=== PATIENT | female | born 1995 | race Caucasian/White ===

== ENCOUNTER 2017-03-27 10:59 | Emergency (ER) | payer OTHER ==
[2017-03-27 11:12] VITALS: TEMP 97.9; O2SAT 97
[2017-03-27] MEDS ORDERED: NS 1,000 ML IV ONE (11:21)
[2017-03-27] MEDS ORDERED: LOPERAMIDE HCL 2 MG CAP PO ONE (11:22)
--- NOTE | 2017-03-27 11:25 | EDPHY ---
H & P Time Seen by Provider: 03/27/17 11:11 HPI/ROS: CHIEF COMPLAINT: Diarrhea, nausea, vomiting HISTORY OF PRESENT ILLNESS: Patient is a 21-year-old female who presents emergency department with ongoing abdominal issues. Patient states she has a history of IBS. In December of 2016 she switched to a gluten free non sophia diet. She has been slowly introducing very back into her diet. Since Sunday she developed diarrhea. This was nonbloody. She has no significant abdominal cramping. Today she had nausea and vomited x2. This was nonbloody. She denies fevers or chills. No dysuria or frequency. No recent travel. No antibiotic use. Last menstrual period was last month. She is on control. REVIEW OF SYSTEMS: My complete review of systems is negative except as mentioned in the HPI. Past Medical/Surgical History: Includes IBS, asthma, depression Social history: She does not smoke Smoking Status: Never smoked Physical Exam: Vitals noted. Afebrile GENERAL: Well-appearing, in no acute distress, alert. HEENT: Eyes normal to inspection, normal pharynx, no signs of dehydration. NECK: No thyromegaly, no lymphadenopathy, supple. RESPIRATORY: Clear to auscultation bilaterally, no rales, rhonchi or wheezing. CVS: Regular rate and rhythm, no rubs, murmurs, or gallops. ABDOMEN: Soft, nontender, nondistended, no organomegaly. Benign. Normal bowel sounds. BACK: Normal to inspection, no CVA tenderness. SKIN: Normal color, no rash, warm, dry. No pallor. EXTREMITIES: No pedal edema, no calf tenderness, no Homans sign or cords, no joint swelling. NEURO/PSYCH: Alert and oriented x3, normal mood and affect, normal motor sensory exam. Constitutional: Initial Vital Signs Temperature (C) 36.6 C 03/27/17 11:10 Heart Rate 90 03/27/17 11:10 Respiratory Rate 18 03/27/17 11:10 Blood Pressure 136/76 H 03/27/17 11:10 O2 Sat (%) 97 03/27/17 11:10 O2 Delivery Mode Room Air Allergies/Adverse Reactions: cefaclor [From [facility]] Allergy (Verified 03/27/17 11:09) Sulfa (Sulfonamide Antibiotics) Allergy (Verified 03/27/17 11:09) Home Medications: Medication Instructions Recorded Levonorgestrel-Eth Estradiol 12/16/12 [Seasonale] Albuterol 5 mg/ml INH [Proventil] 100 mg IH 05/03/13 Advair 100/50 (RX) 03/18/14 Citalopram 03/27/17 Ondansetron Odt [Zofran Odt 4 mg 4 mg PO Q4PRN PRN #7 tab 03/27/17 (*)] Wellbutrin 100mg (*) 03/27/17 traZODone 03/27/17 Medical Decision Making ED Course/Re-evaluation: In the emergency department I discussed possible etiologies with the patient and her mother. I answered all her questions. IV was placed. Laboratory studies were ordered. Patient was given Zofran 4 mg IV for nausea. She is given normal saline 1 L IV for hydration. She was given Imodium 2 tablets orally for diarrhea. I reviewed the patient's laboratory studies. Her chemistry and LFTs were normal. Patient has a mildly low hematocrit at 36. I discussed all results with the patient. I answered all her questions. On recheck the patient was doing well. She was sitting comfortably in the bed. Her abdomen was soft, nontender nondistended. She was given warnings prior to leaving. She will return with worsening symptoms. Differential Diagnosis: My differential includes but is not limited to IBS, infectious diarrhea, dehydration, electrolyte abnormality, sugar abnormality, small-bowel obstruction , perforation, mass, malignancy - Data Points Laboratory Results: Laboratory Results 03/27/17 11:15 03/27/17 11:15 03/27/17 03/27/17 03/27/17 11:15 11:15 11:15 WBC 8.90 10^3/uL 10^3/uL (3.80-9.50) RBC 4.41 10^6/uL 10^6/uL (4.18-5.33) Hgb 12.0 g/dL L g/dL (12.6-16.3) Hct 36.0 % L % (38.0-47.0) MCV 81.6 fL fL (81.5-99.8) MCH 27.2 pg L pg (27.9-34.1) MCHC 33.3 g/dL g/dL (32.4-36.7) RDW 12.5 % % (11.5-15.2) Plt Count 458 10^3/uL H 10^3/uL (150-400) MPV 9.1 fL fL (8.7-11.7) Neut % (Auto) 67.4 % % (39.3-74.2) Lymph % (Auto) 25.1 % % (15.0-45.0) [place]dwell % (Auto) 6.1 % % (4.5-13.0) Eos % (Auto) 0.7 % % (0.6-7.6) Baso % (Auto) 0.4 % % (0.3-1.7) Nucleat RBC Rel Count 0.0 % % (0.0-0.2) Absolute Neuts (auto) 6.00 10^3/uL 10^3/uL (1.70-6.50) Absolute Lymphs (auto) 2.23 10^3/uL 10^3/uL (1.00-3.00) Absolute Monos (auto) 0.54 10^3/uL 10^3/uL (0.30-0.80) Absolute Eos (auto) 0.06 10^3/uL 10^3/uL (0.03-0.40) Absolute Basos (auto) 0.04 10^3/uL 10^3/uL (0.02-0.10) Absolute Nucleated RBC 0.00 10^3/uL 10^3/uL (0-0.01) Immature Gran % 0.3 % % (0.0-1.1) Immature Gran # 0.03 10^3/uL 10^3/uL (0.00-0.10) Sodium 139 mEq/L mEq/L (134-144) Potassium 4.4 mEq/L mEq/L (3.5-5.2) Chloride 105 mEq/L mEq/L (97-110) Carbon Dioxide 23 mEq/l mEq/l (22-31) Anion Gap 11 mEq/L mEq/L (8-16) BUN 11 mg/dL mg/dL (7-23) Creatinine 0.8 mg/dL mg/dL (0.6-1.0) Estimated GFR > 60 Glucose 88 mg/dL mg/dL (70-100) Calcium 9.3 mg/dL mg/dL (8.5-10.4) Total Bilirubin 0.4 mg/dL mg/dL (0.1-1.4) Conjugated Bilirubin 0.2 mg/dL mg/dL (0.0-0.5) Unconjugated Bilirubin 0.2 mg/dL mg/dL (0.0-1.1) AST 16 IU/L IU/L (14-46) ALT 39 IU/L IU/L (9-52) Alkaline Phosphatase 39 IU/L IU/L (38-126) Total Protein 7.2 g/dL g/dL (6.3-8.2) Albumin 3.9 g/dL g/dL (3.5-5.0) Lipase 47.0 IU/L IU/L (23-300) Beta HCG, Qual NEGATIVE Medications Given: Discontinued Medications Sodium Chloride (Ns) 1,000 mls @ 0 mls/hr IV ONCE ONE PRN Reason: Wide Open Stop: 03/27/17 11:22 Last Admin: 03/27/17 11:15 Dose: 1,000 mls Loperamide HCl (Imodium) 4 mg PO EDNOW ONE Stop: 03/27/17 11:23 Last Admin: 03/27/17 11:45 Dose: 4 mg Ondansetron HCl (Zofran) 4 mg IVP EDNOW ONE Stop: 03/27/17 11:28 Last Admin: 03/27/17 11:40 Dose: 4 mg Departure - Departure Disposition: Home, Routine, Self-Care Clinical Impression: Vomiting and diarrhea Nausea & vomiting Qualifiers: Vomiting type: unspecified Vomiting Intractability: non-intractable Qualified Code(s): R11.2 - Nausea with vomiting, unspecified Condition: Good Instructions: Acute Nausea and Vomiting (ED), Acute Diarrhea (ED) Referrals: Elaine Luke [Primary Care Provider] - 5-7 days, call for appt. Tristin Rendon MD [Medical Doctor] - 5-7 days, call for appt. Prescriptions: Ondansetron Odt [Zofran Odt 4 mg (*)] 4 mg PO Q4PRN PRN #7 tab PRN Reason: For Nausea & Vomiting
[2017-03-27 11:26] LABS: % IMMATURE GRANULYOCYTES 0.3 % (0.0-1.1); ABSOLUTE IMMATURE GRANULOCYTES 0.03 10^3/uL (0.00-0.10); ADD DIFF? NO; ADD MORPH? NO; ADD SCAN? NO; ATYPICAL LYMPHOCYTE FLAG 20 (0-99); FRAGMENT RBC FLAG 0 (0-99); LEFT SHIFT FLG 0 (0-99); LIPEMIA HEMOLYSIS FLAG 80 (0-99); MEAN CELL HEMOGLOBIN 27.2 pg (27.9-34.1); MEAN CELL HEMOGLOBIN CONCENTR. 33.3 g/dL (32.4-36.7); MEAN CELL VOLUME 81.6 fL (81.5-99.8); MEAN PLATELET VOLUME 9.1 fL (8.7-11.7); PLATELET CLUMPS FLAG 10 (0-99); PLATELET COUNT 458 10^3/uL (150-400); RED BLOOD CELL COUNT 4.41 10^6/uL (4.18-5.33); RED CELL DISTRIBUTION WIDTH 12.5 % (11.5-15.2)
[2017-03-27] MEDS ORDERED: ONDANSETRON 4 MG/2 ML VIAL IVP ONE (11:27)
[2017-03-27 11:39] LABS: ALANINE AMINOTRANSFERASE 39 IU/L (9-52); ALBUMIN 3.9 g/dL (3.5-5.0); ALKALINE PHOSPHATASE 39 IU/L (38-126); ANION GAP 11 mEq/L (8-16); ASPARTATE AMINOTRANSFERASE 16 IU/L (14-46); BILIRUBIN,TOTAL 0.4 mg/dL (0.1-1.4); BILIRUBIN-CONJUGATED 0.2 mg/dL (0.0-0.5); BILIRUBIN-UNCONJUGATED 0.2 mg/dL (0.0-1.1); CALCIUM 9.3 mg/dL (8.5-10.4); CARBON DIOXIDE 23 mEq/l (22-31); CHLORIDE 105 mEq/L (97-110); CREATININE 0.8 mg/dL (0.6-1.0); GLOMERULAR FILTRATION RATE > 60; GLUCOSE 88 mg/dL (70-100); POTASSIUM 4.4 mEq/L (3.5-5.2); SODIUM 139 mEq/L (134-144); TOTAL PROTEIN 7.2 g/dL (6.3-8.2)
[2017-03-27 12:27] VITALS: BP 107/60; PULSE 70; RESP 16
== END 2017-03-27 12:15 | disposition home or self-care (01) ==
LOC: CED 10:59
DX: R19.7 Diarrhea, unspecified (principal); R11.2 Nausea with vomiting, unspecified; J45.909 Unspecified asthma, uncomplicated
CPT/HCPCS: 80048-PO; 80076-PO; 83690-PO; 84703-PO; 85025-PO; 96374; J2405

== ENCOUNTER 2018-10-04 08:13 | Emergency (ER) | payer OTHER ==
[2018-10-04] MEDS ORDERED: IBUPROFEN 200 MG TAB PO ONE (09:01)
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
[2018-10-04 10:41] VITALS: BP 120/75
== END 2018-10-04 10:41 | disposition home or self-care (01) ==
DX: S20.219A Contusion of unspecified front wall of thorax, initial encounter (principal); V43.92XA Unspecified car occupant injured in collision with other type car in traffic accident, initial encounter; Y92.410 Unspecified street and highway as the place of occurrence of the external cause; Y93.9 Activity, unspecified; Y99.9 Unspecified external cause status

== ENCOUNTER → 2019-04-17 | Outpatient (CLI) | payer OTHER | LOC: FIMAGING 16:21 ==